=== PATIENT | male | born 1945 | race Caucasian/White ===

== ENCOUNTER → 2017-09-28 | Outpatient (CLI) | payer MEDICARE ==
[~2017-09-28] MED LIST: CARB1TAB10 PO; DAILTAB38 PO
[2017-09-28 12:44] LABS: BILIRUBIN, URINE NEG (NEG); BLOOD, URINE TRACE (NEG); GLUCOSE,URINE NEG (NEG); KETONE, URINE NEG (NEG); MUCUS URINE FEW /lpf (OCC); NITRITE,URINE NEG (NEG); PH, URINE 5.5 (5.0-8.5); URINE COLOR YELLOW (YELLW/STRAW); URINE LEUKOCYTE ESTERASE NEG (NEG)
[2017-09-28 12:49] LABS: INTERNATIONAL NORMALIZED RATIO 1.1 RATIO; PROTHROMBIN TIME - PATIENT 10.8 SEC (9.8-11.6)
--- NOTE | 2017-09-28 12:58 | RADRPT ---
EXAM DATE/TIME: 09/28/2017 12:37 [facility] COMPARISON: No previous studies available for comparison. INDICATIONS : Evaluate for pneumonia, pneumothorax or communicable disease, preop chest for left knee surgery on 04/14. No chest complaints at this time MEDICAL HISTORY : None. SURGICAL HISTORY : None. ENCOUNTER: Initial ACUITY: 1 day PAIN SCORE: 0/10 LOCATION: Bilateral chest FINDINGS: PA and lateral views of the chest demonstrate the lungs to be symmetrically aerated without evidence of mass, infiltrate or effusion. The cardiomediastinal contours are unremarkable. Osseous structure s are intact. CONCLUSION: No acute cardiopulmonary disease. Chapincito Peck MD on September 28, 2017 at 12:58 Board Certified Radiologist. This report was verified electronically.
== END ==
LOC: CPRE 11:18
PROVIDERS: ATTEND Orthopaedic Surgery
DX: Z01.812 Encounter for preprocedural laboratory examination (principal); Z01.811 Encounter for preprocedural respiratory examination; D69.6 Thrombocytopenia, unspecified; S83.232D Complex tear of medial meniscus, current injury, left knee, subsequent encounter; Z01.89 Encounter for other specified special examinations
CPT/HCPCS: 36415; 71046; 80053; 81001; 85025; 85610

== ENCOUNTER → 2017-09-28 | Outpatient (CLI) | payer MEDICARE ==
[2017-09-28 12:45] LABS: AUTOMATED NEUTROPHIL # 3.3 TH/MM3 (1.8-7.7); BASOPHIL % 0.8 % (0.0-2.0); EOSINOPHIL # 0.1 TH/MM3 (0-0.4); EOSINOPHIL % 1.4 % (0.0-4.0); HEMATOCRIT 41.3 % (39.0-51.0); HEMOGLOBIN 14.4 GM/DL (13.0-17.0); LYMPH % 22.1 % (9.0-44.0); LYMPHOCYTE # 1.1 TH/MM3 (1.0-4.8); MEAN CELL VOLUME 84.4 FL (80.0-100.0); MEAN CORPUSCULAR HEMOGLOBIN 29.4 PG (27.0-34.0); MEAN CORPUSCULAR HGB CONC 34.8 % (32.0-36.0); MEAN PLATELET VOLUME 8.2 FL (7.0-11.0); MONO % 8.3 % (0.0-8.0); MONOCYTE # 0.4 TH/MM3 (0-0.9); NEUT % 67.4 % (16.0-70.0); PLATELET COUNT 134 TH/MM3 (150-450); RED BLOOD COUNT 4.89 MIL/MM3 (4.50-5.90); RED CELL DISTRIBUTION WIDTH 13.3 % (11.6-17.2); WHITE BLOOD COUNT 4.9 TH/MM3 (4.0-11.0)
[2017-09-28 13:05] LABS: AST (GOT) 16 U/L (15-37); BICARBONATE 29.3 MEQ/L (21.0-32.0); BLOOD UREA NITROGEN 18 MG/DL (7-18); CALCIUM 9.1 MG/DL (8.5-10.1); CHLORIDE 105 MEQ/L (98-107); CREATININE 0.88 MG/DL (0.60-1.30); GLOMERULAR FILTRATION RATE 85 ML/MIN (>89); GLUCOSE,FASTING 95 MG/DL (74-99); SODIUM (NA) 140 MEQ/L (136-145)
[2017-09-28 13:07] LABS: ALT (GPT) 26 U/L (12-78)
[2017-09-28 13:10] LABS: ALKALINE PHOSPHATASE 53 U/L (45-117); TOTAL BILIRUBIN ADULT 0.5 MG/DL (0.2-1.0); TOTAL PROTEIN 7.4 GM/DL (6.4-8.2)
== END ==
LOC: CLAB 11:40
PROVIDERS: ATTEND Internal Medicine
DX: Z01.89 Encounter for other specified special examinations (principal)
CPT/HCPCS: 80053; 85025

== ENCOUNTER → 2017-10-05 | Day surgery (SDC) | payer MEDICARE ==
--- NOTE | 2017-09-29 09:45 | MH ---
cc: Jose Montalvo MD DATE OF ADMISSION: 10/05/2017 ADMITTING DIAGNOSIS: Complex tear of the medial meniscus of his left knee, chondromalacia of the left knee, effusion of the left knee and pain of the left knee. HISTORY OF PRESENT ILLNESS: The patient is a 72-year-old white male who has experienced pain of his left knee of at least 2 years' duration. He had been accustomed [place] part of [place] exercise program and as a result of this activity, became symptomatic with pain especially involving the medial aspect of his left knee. He presented to the undersigned physician in 08/2015, reporting lingering soreness for which he had been taking Aleve and applying ice with minimal relief being noted. His x-ray studies at that time were unremarkable for any acute or chronic bony abnormality. The patient was diagnosed as having a transient synovitis with associated pain of his left knee for which he was encouraged to continue with conservative management utilizing [id number] anti-inflammatory products and being permitted to continue with his walking activities. He was followed on an outpatient basis thereafter, initially experiencing a trend of improvement and thus he was encouraged to continue with conservative modalities. He returned to the office in August of this year, reporting that he had done reasonably well for almost a 2-year interval of time, but subsequently began to experience recurrent pain about his left knee following a family outing to [place], at which time he had sustained a twisting stress of his left knee without actually falling to the ground level. The pain was generalized about the medial aspect of his knee for which he had continued to take Aleve, but having difficulty conforming to weightbearing activities. His more current x-ray studies were without evidence of any acute bony abnormality. The patient was treated with an intraarticular steroid injection and encouraged to utilize Aspercreme or Biofreeze on an as-needed basis. Unfortunately, his symptoms persisted and thus he subsequently underwent MRI scan evaluation, which identified a complex degenerative tear involving the posterior horn and body of the medial meniscus. There was a mild sprain of the anterior cruciate ligament and a joint effusion associated with a grade 4 chondromalacia throughout the medial compartment, with full-thickness cartilage flap involving the medial femoral condyle. The patient remained symptomatic with pain about his left knee, especially along the medial joint line, for which he expressed the desire to proceed with a more definitive course of treatment. The involvement of arthroscopic surgery was outlined with emphasis being made, but the decision to proceed with surgery would be left entirely to the patient's discretion. The patient was eager to proceed in this direction and in compliance with his wishes, he was scheduled for admission at this time in order that the above be accomplished. PAST MEDICAL HISTORY, HOSPITALIZATIONS AND SURGERIES: Have included bilateral inguinal herniorrhaphies with mesh insertion, appendectomy, tonsillectomy, colonoscopy, and laparoscopic cholecystectomy. The patient's medical illnesses include Parkinson's disease for which he takes carbidopa/levodopa 25/25 three times daily. ALLERGIES: HE DENIES ANY KNOWN DRUG ALLERGIES. REVIEW OF SYSTEMS: He does wear glasses. Denies headaches, seizure or syncope. No sinus congestion or epistaxis. Auditory acuity intact. No tinnitus. No bleeding gums or dysphagia. Denies cough, shortness of breath, upper respiratory infection, pneumonia, or tuberculosis. No angina or heart disease. His appetite is good. Bowel movements are regular. No hepatitis, ulcers or hemorrhoids. He is status post cholecystectomy. No urinary tract infection, no kidney stones, no prostate disease, no history of fractures. He has undergone psychiatric evaluation and treatment for suspected PTSD. FAMILY HISTORY: The patient has been for 17 years, this being a second marriage. His is 69 years of age and described as being in good health. He has 1 son and 1 daughter by his previous marriage. His son has a history of Castalia-Dreifuss muscular dystrophy. His 2 stepsons are described as being in good health. His family history is otherwise positive for heart disease and prostate cancer. 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 He completed a master's degree and partial work towards a doctorate. He denies active use of tobacco. Ethanol consumption in the form of an occasional glass of wine. PHYSICAL EXAMINATION: VITAL SIGNS: Height 5 feet 11 inches, weight 175 pounds. GENERAL: An alert, oriented, and responsive 72-year-old white male, sitting quietly upon the examination table with no obvious distress. A mild tremor is noted about the right hand, consistent with his history of Parkinson's disease. HEAD, EARS, EYES, NOSE, AND THROAT: Pupils are equally round and reactive to light. Extraocular movements full. Sclerae are clear. External nares clear. External auditory canals clear. Dental intact. Mucous membranes pink and moist. Pharynx clear. NECK: Supple, active range of motion. No appreciable pain. Carotid pulse is palpable bilaterally. Trachea midline. Thyroid without thyroid enlargement. LUNGS: Clear to auscultation and percussion. BACK: No CVA tenderness. No discomfort throughout the dorsolumbar spine. HEART: Regular rate and rhythm. No murmur or gallop. ABDOMEN: Soft, nontender, bowel sounds present. RECTAL: Per primary care physician. EXTREMITIES: Left knee: There is mild medial joint line tenderness, without palpable deformity. Apprehension and compression sign are negative. No obvious swelling or effusion about the left knee. Limited mobility towards the extremes of flexion in the 110 degree range of motion without appreciable crepitation. No collateral ligamentous laxity. Idania test and drawer sign negative. Pivot shift and Matt sign positive for medial compartment pain. Straight leg raising unremarkable at 80 degrees. Independent gait. NEUROLOGIC: Cranial nerves 2 through 12 grossly intact. IMPRESSION: Complex tear medial meniscus of the left knee, chondromalacia of the left knee, effusion of the left knee pain and pain left knee. PLAN: Arthroscopic surgery and possible arthrotomy of the left knee. The nature of the planned surgical procedure, the potential complications and risks associated, the expectations of surgery and the consent form were thoroughly reviewed with the patient in the presence of his prior to admission to the hospital. Santos has indicated his full understanding regarding all of the above and given consent to proceed with treatment as outlined. Medical evaluation and clearance for surgery will be completed by his primary care physician, Dr. Tyler Becker.. MD FRANTZ Gonzáles/LILLY , 05:32 PM , 06:14 PM
[~2017-10-05] VITALS: Ht 180.3 cm; Wt 79.0 kg
[~2017-10-05] MED LIST changes: +*morphine SULFATE 8 MG/ML PERIprocedure ONLY ONE; +CHLORHEXIDINE GLUCONATE 2 % 1 PACK (2 CLOTHS) TOPICAL PRN; +DO NOT ADM ANY ANTICOAGULANT DRUGS PRN; +KETOROLAC TROMETHAMINE 30 MG/ML (IVP) VIAL IV PUSH ONE; +LACTATED RINGER'S 1000 ML IV PRN; +LIDOCAINE HCL 1% PF 5 ML SYRINGE OTHER ONE; +LIDOCAINE HCL 2% 50 ML VIAL ONE; +METOPROLOL TARTRATE 25 MG TAB PO PRN; +MIDAZOLAM HCL 2 MG/2 ML VIAL ONE; +MORPHINE SULFATE 8 MG/ML INJ IM PRN; +ONDANSETRON HCL 4 MG/2 ML VIAL IV ONE; +PHENYLEPH/NS 1000 MCG/10 ML SYR IV ONE; +POVIDONE IODINE 5% (ANTISEPSIS KIT) 4 APPLICATIONS EACH NARE PRN; +POVIDONE IODINE 7.5% SCRUB 118 ML BOTTLE TOPICAL SCH; +PROMETHAZINE INJ 25 MG/ML VIAL IM PRN; +PROPOFOL 200 MG/20 ML AMP IV ONE; +SODIUM CHLORID 0.9% 500 ML IV PRN; +TRIAMCINOLONE ACETONIDE/PF 40 MG/ML OPTH VIAL ONE; +ceFAZolin INJ 1,000 MG VIAL IV ONE; +oxyCODONE/ACETAMINOPHEN 5 MG/325 MG TAB PO PRN
[2017-10-05] MEDS: CEFAZOLIN INJ 2,000 MG in SODIUM CHLORIDE 0.9% INJ 100 ML IV SCH ×2 (10:38→11:44)
--- NOTE | 2017-10-05 12:07 | MP ---
cc: Jose Montalvo MD DATE OF OPERATION: 10/05/2017 DATE OF OPERATION: 10/05/2017 PREOPERATIVE DIAGNOSES: 1. Complex tear medial meniscus, left knee, 2. Chondromalacia, left knee. 3. Effusion, left knee. 4. Pain of the left knee. POSTOPERATIVE DIAGNOSES: 1. Complex tear medial meniscus, left knee, 2. Chondromalacia, left knee. 3. Effusion, left knee. 4. Pain of the left knee. 5. Synovial plica, left knee. PROCEDURE PERFORMED: 1. Partial medial meniscectomy, left knee. 2. Chondroplasty medial femoral compartment, left knee. 3. Resection synovial plica, left knee. SURGEON: Jose Montalvo MD ANESTHESIA: General via LMA. DESCRIPTION OF PROCEDURE: Following induction of satisfactory general anesthesia by LMA insertion as completed per the Department of Anesthesia, examination of the left knee revealed a satisfactory range of motion with no appreciable ligamentous instability. The extremity was positioned into the surgical tech knee mendez, prepped with Betadine solution and draped into a sterile field in the routine manner. Prior to initiation of the actual procedure, the standard timeout protocol was completed. All parameters were appropriately addressed and confirmed by operating room personnel. Arthroscopic instrumentation was introduced through a stab wound utilizing cannula with sharp and blunt trocar, the inflow irrigation by way of a medial suprapatellar portal and the arthroscope through a lateral parapatellar portal, a probe through a medial parapatellar portal. Examination of the suprapatellar pouch revealed a prominent synovial plica extending from the medial aspect of the suprapatellar region in a transverse orientation across the dome of the suprapatellar pouch. A very minimal degree of irregularity along the patellofemoral articulation. Within the medial compartment, a degenerative tear involving the posterior horn of the medial meniscus was noted, associated degenerative changes along the articular surface of the femoral condyle and tibial plateau. The anterior cruciate ligament was identified and noted to be intact. Examination of the lateral compartment was essentially unremarkable with the exception of some proliferative synovium along its medial margin. Utilizing a 3.8 shaver resector, a partial medial meniscectomy was accomplished as well as a limited chondroplasty of the femoral condyle and tibial plateau. Limited debridement about the intercondylar region of the previously identified proliferative synovium was accomplished and thereafter, the shaver was oriented the suprapatellar region where the previously identified synovial plica was resected in a subtotal orientation. Upon completion of same, the joint space was thoroughly lavaged and suctioned dry. An intra-articular Kenalog lidocaine injection completed. Portal sites reapproximated with Steri-Strips over which Xeroform gauze and a bulky dry sterile dressing were placed. Anesthesia was discontinued and the patient thus transferred to a hospital stretcher, and returned to the recovery room in satisfactory condition, having tolerated the operative procedure well. Estimated blood loss was less than 10 mL. MD FRANTZ Gonzáles/LILLY , 11:44 AM , 12:06 PM
[2017-10-05 13:30] VITALS: BP 114/63; PULSE 65; RESP 16; TEMP 98.6; O2SAT 99
== END | disposition home or self-care (01) ==
LOC: HSDC 08:04 → EDUNIT# 10:00
PROVIDERS: ATTEND Orthopaedic Surgery
DX: S83.232A Complex tear of medial meniscus, current injury, left knee, initial encounter (principal); M94.262 Chondromalacia, left knee; M67.52 Plica syndrome, left knee; G20 Parkinson's disease
CPT/HCPCS: 01400; 29881; J0690; J1885; J2250; J2270; J2370; J2405; J3010; J3300